=== PATIENT | male | born 1950 | race Caucasian/White ===

== ENCOUNTER 2018-01-23 06:10 | Inpatient (IN) | payer MEDICARE, OTHER ==
[2018-01-16 12:11] VITALS: BMI 37.3
[2018-01-23] MEDS ORDERED: Bupivacaine Liposomal Inj 20 ml INFIL ONE (07:28)
[2018-01-23] MEDS ORDERED: Bacitracin 150,000 UNIT in Sodium Chloride 0.9% Irrig 3,000 ML IR SCH (07:30)
[2018-01-23] MEDS ORDERED: Midazolam 2 MG/2 ML VIAL ONE (07:33)
[2018-01-23] MEDS ORDERED: Propofol 10 mg/ml Inj (20 ML) ONE (07:34)
[2018-01-23] MEDS ORDERED: ceFAZolin IV 1 gm in Dextrose 2 GM/100 ML BAG IVPB ONE (07:37)
[2018-01-23] MEDS ORDERED: Thrombin Topical 20,000 Intl Units Spray Kit TOP ONE (07:37)
[2018-01-23] MEDS ORDERED: Bupivacaine 0.5% Inj(30mL) IJ ONE (07:38)
[2018-01-23] MEDS ORDERED: Sodium Chloride 0.9% 40 ML IV ONE (08:04)
[2018-01-23] MEDS ORDERED: Sodium Chloride 0.9% 20 ML IV ONE (08:23)
[2018-01-23] MEDS ORDERED: Rocuronium 10 mg/ml (5 ml) ONE ×3 (08:53→11:58)
[2018-01-23] MEDS ORDERED: Phenylephrine 10 mg/ml Inj ONE ×3 (09:00→12:08)
[2018-01-23] MEDS ORDERED: ePHEDrine 50 mg/ml Inj ONE (09:07)
[2018-01-23 10:08] LABS: SQUAMOUS EPITHIAL < 1 /hpf (0-5); URINE BACTERIA RARE (<OCC); URINE BILIRUBIN NEGATIVE (NEGATIVE); URINE BLOOD NEGATIVE (NEGATIVE); URINE CLARITY Clear (Clear); URINE COLOR Yellow (YELLOW); URINE GLUCOSE (UA) NORMAL (Normal); URINE LEUKOCYTE ESTERASE NEG Leu/uL (Negative); URINE PROTEIN NEGATIVE (NEGATIVE); URINE UROBILINOGEN NORMAL mg/dL (0.2-1.0)
[2018-01-23] MEDS ORDERED: Metoprolol 1 mg/ml Inj ONE (10:37)
[2018-01-23] MEDS ORDERED: Vasopressin 20 Units/ml Inj ONE (12:08)
[2018-01-23] MEDS ORDERED: Neostigmine Methylsulfate 3mg/3ml Syringe IV ONE ×2 (12:13→12:14)
[2018-01-23] MEDS ORDERED: Morphine 4 MG/ML VIAL ONE (12:17)
[2018-01-23] MEDS ORDERED: Esmolol 100 mg/10ml Inj IV ONE (12:29)
--- NOTE | 2018-01-23 12:38 | PCM.SURG1 ---
<Denny Jefferson A - Last Filed: 01/24/18 07:56> Surgeon's Initial Post Op Note - Surgeon's Notes Surgeon: Eve Koch MD Gyro Mechanic: Monroe Miranda PA-C, DO Type of Anesthesia: General Endo Anesthesia Administered By: Dr. Zelaya Pre-Operative Diagnosis: Left knee DJD Operative Findings: tourniquet: 120min @300mmHg Post-Operative Diagnosis: same Operation Performed: Left total knee replacement, open synovectomy Specimen/Specimens Removed: synovitis Estimated Blood Loss: EBL {In ML}: 150 Blood Products Given: N/A Drains Used: Hemovac Post-Op Condition: Fair Date of Surgery/Procedure: 01/23/18 Time of Surgery/Procedure: 13:00 <Batsheva Márquez S - Last Filed: 02/10/18 00:17> Surgeon's Initial Post Op Note - Surgeon's Notes Specimen/Specimens Removed: Specimen= synovitis/synovium sent to path. Implants=. #1 Medacta GMK primary TKA system, sphere. size 5 cemented tibial tray, size 4+ cemneted sphere femur, size 2 cemented patellar button, size 5 - 12mm sphere poly spacer. #2 Biomet bone cement x2
[2018-01-23] MEDS ORDERED: Metoprolol 1 mg/ml Inj IVP ONE (13:06)
--- NOTE | 2018-01-23 13:15 | CP.PCM.PN ---
Subjective - Date & Time of Evaluation Date of Evaluation: 01/23/18 Time of Evaluation: 04:00 - Subjective Subjective: PGY 3 medical progress note for Dr. Metcalf: 67 year old male with a past medical history of DM, HTN, GERD, and degenerative join disease presents today s/p left total knee replacement. Patient was seen in the PACU after the surgery and was doing well. Aviles in place. He was still drowsy from anesthesia. PmHX - DM, HTN, GERD, and degenerative join disease, BPH Meds - per med rec NKDA Surg - cholecystectomy Social - , 2 kids, employed parts sales counterperson, former smoke 1/2 pack per day from [age] years old. denies alcohol or drug use Objective - Vital Signs/Intake and Output Vital Signs (last 24 hours): Temp Pulse Resp BP Pulse Ox 97.6 F 112 H 20 104/68 96 01/23/18 06:37 01/23/18 06:37 01/23/18 06:37 01/23/18 06:37 01/23/18 06:37 Intake and Output: 01/23/18 01/23/18 06:59 18:59 Intake Total 3100 Balance 3100 - Medications Medications: Current Medications Acetaminophen (Tylenol 325mg Tab) 650 mg PO Q6 PRN PRN Reason: Fever 101 and above Docusate Sodium (Colace) 100 mg PO BID [facility] Enoxaparin Sodium (Lovenox) 40 mg SC DAILY [facility] Hydromorphone HCl (Dilaudid) 1 mg IVP Q4H PRN PRN Reason: Pain, severe (8-10) Hydromorphone HCl (Dilaudid) 0.5 mg IVP Q10M PRN PRN Reason: Pain, moderate (4-7) Cefazolin Sodium/Dextrose (Ancef Iv 2 Gm Duplex) 2 gm in 50 mls @ 100 mls/hr IVPB Q8H [facility]; Protocol Stop: 01/24/18 16:01 Sodium Chloride (Sodium Chloride 0.9%) 1,000 mls @ 100 mls/hr IV .Q10H [facility] Stop: 01/24/18 08:29 Metoprolol Tartrate (Lopressor) 2.5 mg IVP ONCE ONE Stop: 01/23/18 13:07 Ondansetron HCl (Zofran Inj) 4 mg IVP Q6H PRN PRN Reason: Nausea/Vomiting Ondansetron HCl (Zofran Inj) 4 mg IVP ONCE PRN PRN Reason: Nausea/Vomiting Stop: 01/23/18 15:06 Oxycodone HCl (Oxycodone Immediate Release Tab) 10 mg PO Q4H PRN PRN Reason: Pain, moderate (4-7) - Constitutional Appears: Non-toxic, No Acute Distress - Head Exam Head Exam: NORMAL INSPECTION - Eye Exam Eye Exam: EOMI - Respiratory Exam Respiratory Exam: Clear to Ausculation Bilateral, NORMAL BREATHING PATTERN. absent: Respiratory Distress - Cardiovascular Exam Cardiovascular Exam: Tachycardia, REGULAR RHYTHM, +S1, +S2 - GI/Abdominal Exam GI & Abdominal Exam: Soft, Normal Bowel Sounds. absent: Distended, Firm, Guarding, Tenderness Additional comments: obese - Neurological Exam Neurological Exam: Awake Additional comments: still drowsy from anesthesia - Psychiatric Exam Psychiatric exam: Normal Affect, Normal Mood Assessment and Plan - Assessment and Plan (Free Text) Assessment: S/P Left total knee replacement 01/[address] Ned Dc Ancef 2 gm IVPB Q8h x 3 doses Lovenox 40mg Dilaudid 1mg IVP PRN- severe pain Dilaudid 0.5 mg IVP PRN- moderate pain Oxycodone 10mg PO Q4h PRN Tylenol 325mg 650mg PO PRN Q6 fever Zofran inj 4mg IVP Q6H PRN Aviles in place - to be removed tomorrow am PT/OT, continuous passive movement as tolerated Incentive spirometry f/u am labs, vitD, urine cx Diabetes Levemir 35 unit SC HS Januvia 100mg PO daily Crestor 10mg PO HS On iwona therapy hypoglycemic protocol ISS Will hold home metformin while in the hospital, to restart in 48-72 hours at discharge Hypertension Amlodipine 5mg PO daily Enalapril 10mg PO daily Hydrochlorothiazide 1 cap PO daily Hyperlipidemia Crestor 10mg PO HS BPH Folmax 0.4mg PO daily Finesteride 5mg PO HS Prophylactic measures SCDs No chemical anticoagultion until tomorrow due to surgery today - Lovenox 40mg SC dialy to begin 01/24 Consistent Carb diet Colace 100mg PO BID Multivitamins daily Case management for [facility] TC upon discharge *All management and orders per Dr. Metcalf.
[2018-01-23] MEDS: HYDROmorphone 0.5 mg/0.5 ml ISec IVP PRN ×3 (13:28→14:08)
--- NOTE | 2018-01-23 14:02 | RAD ---
Date of service: 01/23/2018 PROCEDURE: Left Knee Radiographs. HISTORY: Pain. COMPARISON: None. FINDINGS: BONES: Bone alignment is normal. There is periarticular bone demineralization. No acute fracture or bone destruction. JOINTS: Status post total cemented knee arthroplasty. There is a suprapatellar joint effusion. JOINT EFFUSION: There is periarticular soft tissue swelling and postoperative changes. There are anterior skin dayanna. OTHER FINDINGS: None. IMPRESSION: Status post total cemented knee arthroplasty with expected postoperative changes in the periarticular soft tissues. No acute complications.
[2018-01-23] MEDS ORDERED: Bupivacaine 0.25% 20 ML INJ IJ ONE (14:30)
[2018-01-23] MEDS ORDERED: Glucagon Recombinant 1 mg Inj IM PRN (14:44)
[2018-01-23] MEDS ORDERED: Dextrose 50% SYRINGE Inj (50 ml) IV PRN (14:44)
--- NOTE | 2018-01-23 14:54 | PCM.ANESB7 ---
Adductor Canal Block - Adductor Canal Block Date of Procedure: 01/23/18 Anesthiologist: Garcia Pre-Procedure Diagnosis: Left Knee Osteoarthritis Post-Procedure Diagnosis: Left Knee Osteoarthritis Procedure Performed: Adductor Canal Block Left - Procedure Adductor Canal Block: The procedure was explained to the patient that it is for the post-operative pain management. Consent was obtained after a thorough discussion with the patient regarding the benefits and possible complications of local anesthetic adductor canal block of the femoral nerve. Standard monitors, as defined by the ASA, were applied to the patient. Time-out was held with the circulating nurse to confirm the appropriate block. After applying supplemental oxygen and administering IV Sedation as needed, the patient was placed in supine position with and the operative leg was flexed slightly at the knee and externally rotated as needed, and was kept anatomically stable. The mid-thigh of the left lower extremity was exposed. The ultrasound transducer was then applied transversely along the medial aspect, about midway down the thigh and the femoral artery and vein were identified in appropriate relation with the sartorius muscle. At this time, the femoral nerve was visualized lateral to the femoral artery within the canal. After thorough identification, this area area was prepped with Chloroprep solution three times At this point, a #22 gauge Stimuplex 4-inch needle was inserted in-plane in a [id number] orientation, and advanced toward the saphenous nerve. Advancement was performed carefully under direct ultrasound visualization. . After negative aspiration, 20_cc of __0.25_% ____bupivicaine__was injected. Under ultrasound guidance the local anesthetics were observed spreading around the femoral nerve. The needle was removed intact and sterile dressing was applied. The patient had stable vital signs, was conscious and in no apparent distress. The patient tolerated the femoral nerve block well with stable vital signs and was prepared for subsequent surgery
[2018-01-23] MEDS: ceFAZolin IV 2 gm in Dextrose 2 GM/50 ML BAG IVPB SCH (17:00)
[2018-01-23] MEDS: Sodium Chloride 0.9% 1,000 ML IV SCH ×2 (17:30→23:04)
[2018-01-23] MEDS: (Novolog Mix 70/30) Insulin Aspart/Insulin Aspar 100 units/ml SC SCH (18:40)
[2018-01-23] MEDS: (Novolin R) Insulin Human Regular 100 units/ml vial SC SCH (23:00)
[2018-01-23] MEDS: Insulin Detemir 100 units/ml Vial (Levemir) SC SCH (23:00)
[2018-01-24] MEDS: ceFAZolin IV 2 gm in Dextrose 2 GM/50 ML BAG IVPB SCH (00:39)
[2018-01-24] MEDS: HYDROmorphone 1 mg/ml ISec IVP PRN ×5 (01:31→18:19)
[2018-01-24] MEDS: Sodium Chloride 0.9% 1,000 ML IV SCH (02:01)
[2018-01-24] MEDS: oxyCODONE 10 mg Immediate Release Tab PO PRN ×2 (04:15→17:10)
--- NOTE | 2018-01-24 06:54 | CP.PCM.PN ---
Subjective - Date & Time of Evaluation Date of Evaluation: 01/24/18 Time of Evaluation: 06:54 - Subjective Subjective: PGY2- Progress note for Dr. Metcalf Patient was seen and examined at bedside in no acute distress. Patient was oob to chair. Patient reports feeling well, has mild post op pain. Patient denies chest pain, palpitations, dyspnea, cough, nausea, vomiting, fevers, abdominal pain, headaches, dysuria. Patient states hes tolerating his diet, but has not had a BM since the operation. Objective - Vital Signs/Intake and Output Vital Signs (last 24 hours): Temp Pulse Resp BP Pulse Ox 98.1 F 100 H 20 144/78 96 01/24/18 04:36 01/24/18 05:45 01/24/18 05:45 01/24/18 05:45 01/24/18 05:45 Intake and Output: 01/23/18 01/24/18 18:59 06:59 Intake Total 4000 2160 Output Total 1250 3540 Balance 2750 -1380 - Medications Medications: Current Medications Acetaminophen (Tylenol 325mg Tab) 650 mg PO Q6 PRN PRN Reason: Fever 101 and above Amlodipine Besylate (Norvasc) 5 mg PO DAILY [facility] Dextrose (Dextrose 50% Inj) 0 ml IV STAT PRN; Protocol PRN Reason: Hypoglycemia Protocol Dextrose (Glutose 15) 0 gm PO ONCE PRN; Protocol PRN Reason: Hypoglycemia Protocol Docusate Sodium (Colace) 100 mg PO BID [facility] Last Admin: 01/23/18 18:38 Dose: 100 mg Enalapril Maleate (Vasotec) 10 mg PO DAILY [facility] Enoxaparin Sodium (Lovenox) 40 mg SC DAILY [facility] Finasteride (Proscar) 5 mg PO HS [facility] Last Admin: 01/23/18 23:00 Dose: 5 mg Glucagon (Glucagen Diagnostic Kit) 0 mg IM STAT PRN; Protocol PRN Reason: Hypoglycemia Protocol Hydromorphone HCl (Dilaudid) 1 mg IVP Q4H PRN PRN Reason: Pain, severe (8-10) Last Admin: 01/24/18 05:47 Dose: 1 mg Hydromorphone HCl (Dilaudid) 0.5 mg IVP Q10M PRN PRN Reason: Pain, moderate (4-7) Last Admin: 01/23/18 14:08 Dose: 0.5 mg Sodium Chloride (Sodium Chloride 0.9%) 1,000 mls @ 100 mls/hr IV .Q10H [facility] Stop: 01/24/18 08:29 Last Admin: 01/24/18 02:01 Dose: 100 mls/hr Dextrose (Dextrose 5% In Water 1000 Ml) 1,000 mls @ 0 mls/hr IV .Q0M PRN; Protocol PRN Reason: Hypoglycemia Protocol Insulin Aspart (Novolog Mix 70/30 (70/30 Units/Ml)) 35 units SC QPM [facility] Last Admin: 01/23/18 18:40 Dose: 35 units Insulin Aspart (Novolog Mix 70/30 (70/30 Units/Ml)) 10 units SC QAM [facility] Insulin Detemir (Levemir) 35 unit SC HS [facility] Last Admin: 01/23/18 23:00 Dose: 35 units Insulin Human Regular (Novolin R) 0 unit SC ACHS [facility]; Protocol Last Admin: 01/23/18 23:00 Dose: Not Given Multivitamins (Hexavitamin) 1 tab PO DAILY [facility] Ondansetron HCl (Zofran Inj) 4 mg IVP Q6H PRN PRN Reason: Nausea/Vomiting Oxycodone HCl (Oxycodone Immediate Release Tab) 10 mg PO Q4H PRN PRN Reason: Pain, moderate (4-7) Last Admin: 01/24/18 04:15 Dose: 10 mg Rosuvastatin Calcium (Crestor) 10 mg PO [facility] Last Admin: 01/23/18 23:00 Dose: 10 mg Sitagliptin Phosphate (Januvia) 100 mg PO DAILY [facility] Tamsulosin HCl (Flomax) 0.4 mg PO DAILY [facility] Triamterene/HCTZ (Dyazide 25 Mg-37.5 Mg) 1 cap PO DAILY [facility] - Constitutional Appears: No Acute Distress - Head Exam Head Exam: NORMAL INSPECTION - Eye Exam Eye Exam: EOMI, Normal appearance - ENT Exam ENT Exam: Mucous Membranes Moist - Respiratory Exam Respiratory Exam: Clear to Ausculation Bilateral, NORMAL BREATHING PATTERN. absent: Rales, Rhonchi, Wheezes - Cardiovascular Exam Cardiovascular Exam: REGULAR RHYTHM, +S1, +S2 - GI/Abdominal Exam GI & Abdominal Exam: Soft, Normal Bowel Sounds. absent: Distended, Firm, Gu arding, Tenderness - Extremities Exam Extremities Exam: Tenderness (post op). absent: Pedal Edema Additional comments: LLE: dressing in place, clean, dry, and intact; sensation and motor intact; - Neurological Exam Neurological Exam: Alert, Awake, Oriented x3 - Psychiatric Exam Psychiatric exam: Normal Affect, Normal Mood - Skin Skin Exam: Dry, Normal Color, Warm Assessment and Plan - Assessment and Plan (Free Text) Plan: S/P Left total knee replacement 01/[address] Ned Dc Ancef 2 gm IVPB Q8h x 3 doses Lovenox 40mg Dilaudid 1mg IVP PRN- severe pain Dilaudid 0.5 mg IVP PRN- moderate pain Oxycodone 10mg PO Q4h PRN Tylenol 325mg 650mg PO PRN Q6 fever Zofran inj 4mg IVP Q6H PRN VitD: 31.8 Continue to monitor Diabetes Levemir 35 unit SC HS Januvia 100mg PO daily Crestor 10mg PO HS On iwona therapy Hypoglycemic protocol ISS Will hold home metformin while in the hospital, to restart in 48-72 hours at discharge Hypertension Amlodipine 5mg PO daily Enalapril 10mg PO daily Hydrochlorothiazide 1 cap PO daily Hyperlipidemia Crestor 10mg PO HS BPH Flomax 0.4mg PO daily Finesteride 5mg PO HS Prophylactic measures Lovenox 40mg SC daily Consistent Carb diet Colace 100mg PO BID Multivitamins daily PT/OT Incentive spirometry Case management referral for discharge planning to TCU.
[2018-01-24] MEDS: (Novolin R) Insulin Human Regular 100 units/ml vial SC SCH ×4 (08:36→21:59)
[2018-01-24 08:47] LABS: HEMOGLOBIN 10.6 g/dL (12.0-18.0); MEAN CELL VOLUME 83.9 fL (80.0-94.0); MEAN CORPUSCULAR HEMOGLOBIN 29.2 pg (27.0-31.0); MEAN CORPUSCULAR HGB CONC 34.8 g/dL (33.0-37.0); RBC 3.63 Mil/uL (4.40-5.90); RED CELL DISTRIBUTION WIDTH 14.6 % (11.5-14.5); WHITE BLOOD COUNT 9.5 K/uL (4.8-10.8)
[2018-01-24 09:05] LABS: BLOOD UREA NITROGEN 14 mg/dL (9-20); CALCIUM 8.1 mg/dl (8.6-10.4); GFR NON-AFRICAN AMERICAN > 60
--- NOTE | 2018-01-24 09:18 | CP.PCM.PN ---
Subjective - Date & Time of Evaluation Date of Evaluation: 01/24/18 Time of Evaluation: 09:14 - Subjective Subjective: Patient states that he has a lot of pain, but the injection helps. Denies CP/SOB/dizziness/numbness/tingling. Objective - Vital Signs/Intake and Output Vital Signs (last 24 hours): Temp Pulse Resp BP Pulse Ox 98.1 F 100 H 20 144/78 96 01/24/18 04:36 01/24/18 05:45 01/24/18 05:45 01/24/18 05:45 01/24/18 05:45 Intake and Output: 01/24/18 01/24/18 06:59 18:59 Intake Total 2160 Output Total 3540 Balance -1380 - Medications Medications: Current Medications Acetaminophen (Tylenol 325mg Tab) 650 mg PO Q6 PRN PRN Reason: Fever 101 and above Amlodipine Besylate (Norvasc) 5 mg PO DAILY [facility] Dextrose (Dextrose 50% Inj) 0 ml IV STAT PRN; Protocol PRN Reason: Hypoglycemia Protocol Dextrose (Glutose 15) 0 gm PO ONCE PRN; Protocol PRN Reason: Hypoglycemia Protocol Docusate Sodium (Colace) 100 mg PO BID [facility] Last Admin: 01/23/18 18:38 Dose: 100 mg Enalapril Maleate (Vasotec) 10 mg PO DAILY [facility] Enoxaparin Sodium (Lovenox) 40 mg SC DAILY [facility] Finasteride (Proscar) 5 mg PO HS [facility] Last Admin: 01/23/18 23:00 Dose: 5 mg Glucagon (Glucagen Diagnostic Kit) 0 mg IM STAT PRN; Protocol PRN Reason: Hypoglycemia Protocol Hydromorphone HCl (Dilaudid) 1 mg IVP Q4H PRN PRN Reason: Pain, severe (8-10) Last Admin: 01/24/18 05:47 Dose: 1 mg Hydromorphone HCl (Dilaudid) 0.5 mg IVP Q10M PRN PRN Reason: Pain, moderate (4-7) Last Admin: 01/23/18 14:08 Dose: 0.5 mg Dextrose (Dextrose 5% In Water 1000 Ml) 1,000 mls @ 0 mls/hr IV .Q0M PRN; Protocol PRN Reason: Hypoglycemia Protocol Insulin Aspart (Novolog Mix 70/30 (70/30 Units/Ml)) 35 units SC QPM [facility] Last Admin: 01/23/18 18:40 Dose: 35 units Insulin Aspart (Novolog Mix 70/30 (70/30 Units/Ml)) 10 units SC QAM [facility] Insulin Detemir (Levemir) 35 unit SC HS [facility] Last Admin: 01/23/18 23:00 Dose: 35 units Insulin Human Regular (Novolin R) 0 unit SC ACHS [facility]; Protocol Last Admin: 01/24/18 08:36 Dose: 3 u Multivitamins (Hexavitamin) 1 tab PO DAILY [facility] Ondansetron HCl (Zofran Inj) 4 mg IVP Q6H PRN PRN Reason: Nausea/Vomiting Oxycodone HCl (Oxycodone Immediate Release Tab) 10 mg PO Q4H PRN PRN Reason: Pain, moderate (4-7) Last Admin: 01/24/18 04:15 Dose: 10 mg Rosuvastatin Calcium (Crestor) 10 mg PO HS [facility] Last Admin: 01/23/18 23:00 Dose: 10 mg Sitagliptin Phosphate (Januvia) 100 mg PO DAILY [facility] Tamsulosin HCl (Flomax) 0.4 mg PO DAILY [facility] Triamterene/HCTZ (Dyazide 25 Mg-37.5 Mg) 1 cap PO DAILY [facility] - Labs Labs: 01/24/18 08:42 01/24/18 08:42 - Extremities Exam Additional comments: Left knee: hemovac 20 overnight, no fluid in canister, pulled, pressure dressing applied +ROM ankle/toes, sensation intact, +DP/PT pulses calves soft NT neg homans Assessment and Plan (1) Primary osteoarthritis of left knee Assessment & Plan: POD#1 s/p TKR PT/OT d/c planning VTE proph medical mgmt of HTN/DM d/w Dr. Koch, agrees with above Status: Acute (2) HTN (hypertension) Assessment & Plan: cont home meds Status: Chronic (3) Diabetes mellitus Status: Chronic
[2018-01-24] MEDS: hydroCHLOROthiazide-Triamterene 25 mg-37.5 mg Cap UD PO SCH (10:11)
[2018-01-24] MEDS: Multiple Vitamins Tab PO SCH (10:12)
[2018-01-24] MEDS: (Novolog Mix 70/30) Insulin Aspart/Insulin Aspar 100 units/ml SC SCH ×2 (10:16→18:21)
[2018-01-24] MEDS: Enoxaparin 40 mg Syringe SC SCH (10:25)
[2018-01-24 11:22] LABS: BASO # 0.1 K/uL (0.0-0.2); BASO % 0.6 % (0.0-2.0); EOS # 0.1 K/uL (0.0-0.7); EOS % 0.8 % (0.0-4.0); HEMOGLOBIN 10.3 g/dL (12.0-18.0); LYMPH # 1.2 K/uL (1.0-4.3); LYMPH % 12.4 % (20.0-40.0); MEAN CELL VOLUME 84.2 fL (80.0-94.0); MEAN CORPUSCULAR HEMOGLOBIN 28.5 pg (27.0-31.0); MEAN CORPUSCULAR HGB CONC 33.9 g/dL (33.0-37.0); MEAN PLATELET VOLUME 8.3 fL (7.2-11.7); MONO # 0.9 K/uL (0.0-0.8); MONO % 10.1 % (0.0-10.0); NEUT # 7.2 K/uL (1.8-7.0); NEUT % 76.1 % (50.0-75.0); RBC 3.61 Mil/uL (4.40-5.90); RED CELL DISTRIBUTION WIDTH 14.7 % (11.5-14.5); WHITE BLOOD COUNT 9.4 K/uL (4.8-10.8)
[2018-01-24 11:30] LABS: ALB/GLOB RATIO 1.3 (1.0-2.1); ALBUMIN 3.6 g/dL (3.5-5.0); ALT/SGPT 27 U/L (21-72); AST/SGOT 23 U/L (17-59); BLOOD UREA NITROGEN 13 mg/dL (9-20); CALCIUM 8.1 mg/dl (8.6-10.4); GFR NON-AFRICAN AMERICAN > 60
[2018-01-24] MEDS: Calcium-Vit D 500 mg-200 Units Tab UD PO SCH (13:13)
[2018-01-24] MEDS: Insulin Detemir 100 units/ml Vial (Levemir) SC SCH (22:31)
[2018-01-25] MEDS: HYDROmorphone 1 mg/ml ISec IVP PRN ×2 (05:45→13:33)
--- NOTE | 2018-01-25 07:09 | CP.PCM.PN ---
Addendum entered and electronically signed by Smitha Salinas 01/25/18 13:51: Patient authorized for placement at TCU. Patient will be discharged and transferred to TCU in [place]. Patient is stable for discharge to TCU at [place] per Dr. Metcalf and Dr. Garay. Patient must continue all home medications. Patient must continue Lovenox 40mg SC daily. Per ortho, patient must continue weight bearing exercises. Dressing change will be performed on Sunday by ortho team. Patient must follow up with orthopedic surgeon, Dr. Garay, and PMD, Dr. Metcalf, within one week of discharge. If symptoms worsen, patient should return to the nearest ED. Original Note: Subjective - Date & Time of Evaluation Date of Evaluation: 01/25/18 Time of Evaluation: 07:09 - Subjective Subjective: PGY2- Progress note for Dr. Metcalf Patient was seen and examined at bedside in no acute distress. Patient reports feeling well, has mild post op pain. Patient denies chest pain, palpitations, dyspnea, cough, nausea, vomiting, fevers, abdominal pain, headaches, dysuria. Patient states hes tolerating his diet, but has not had a BM since the operation; he is, however, passing flatus. Objective - Vital Signs/Intake and Output Vital Signs (last 24 hours): Temp Pulse Resp BP Pulse Ox 98.9 F 105 H 20 146/77 94 L 01/25/18 05:42 01/25/18 05:42 01/25/18 05:42 01/25/18 05:42 01/25/18 05:42 Intake and Output: 01/25/18 01/25/18 06:59 18:59 Output Total 900 Balance -900 - Medications Medications: Current Medications Acetaminophen (Tylenol 325mg Tab) 650 mg PO Q6 PRN PRN Reason: Fever 101 and above Amlodipine Besylate (Norvasc) 5 mg PO DAILY [facility] Last Admin: 01/24/18 10:12 Dose: 5 mg Calcium/Vitamin D (Oyster Shell Calcium/Vitamin D 500 Mg-200 Iu) 1 tab PO DAILY [facility] Last Admin: 01/24/18 13:13 Dose: 1 tab Dextrose (Dextrose 50% Inj) 0 ml IV STAT PRN; Protocol PRN Reason: Hypoglycemia Protocol Dextrose (Glutose 15) 0 gm PO ONCE PRN; Protocol PRN Reason: Hypoglycemia Protocol Docusate Sodium (Colace) 100 mg PO BID [facility] Last Admin: 01/24/18 18:19 Dose: 100 mg Enalapril Maleate (Vasotec) 10 mg PO DAILY [facility] Last Admin: 01/24/18 10:12 Dose: 10 mg Enoxaparin Sodium (Lovenox) 40 mg SC DAILY [facility] Last Admin: 01/24/18 10:25 Dose: 40 mg Finasteride (Proscar) 5 mg PO HS [facility] Last Admin: 01/24/18 22:29 Dose: 5 mg Glucagon (Glucagen Diagnostic Kit) 0 mg IM STAT PRN; Protocol PRN Reason: Hypoglycemia Protocol Hydromorphone HCl (Dilaudid) 1 mg IVP Q4H PRN PRN Reason: Pain, severe (8-10) Last Admin: 01/25/18 05:45 Dose: 1 mg Hydromorphone HCl (Dilaudid) 0.5 mg IVP Q10M PRN PRN Reason: Pain, moderate (4-7) Last Admin: 01/23/18 14:08 Dose: 0.5 mg Dextrose (Dextrose 5% In Water 1000 Ml) 1,000 mls @ 0 mls/hr IV .Q0M PRN; Prot ocol PRN Reason: Hypoglycemia Protocol Insulin Aspart (Novolog Mix 70/30 (70/30 Units/Ml)) 35 units SC QPM [facility] Last Admin: 01/24/18 18:21 Dose: 35 units Insulin Aspart (Novolog Mix 70/30 (70/30 Units/Ml)) 10 units SC QAM [facility] Last Admin: 01/24/18 10:16 Dose: 10 u Insulin Detemir (Levemir) 35 unit SC HS [facility] Last Admin: 01/24/18 22:31 Dose: 35 units Insulin Human Regular (Novolin R) 0 unit SC ACHS [facility]; Protocol Last Admin: 01/24/18 21:59 Dose: Not Given Multivitamins (Hexavitamin) 1 tab PO DAILY [facility] Last Admin: 01/24/18 10:12 Dose: 1 tab Ondansetron HCl (Zofran Inj) 4 mg IVP Q6H PRN PRN Reason: Nausea/Vomiting Oxycodone HCl (Oxycodone Immediate Release Tab) 10 mg PO Q4H PRN PRN Reason: Pain, moderate (4-7) Last Admin: 01/24/18 17:10 Dose: 10 mg Rosuvastatin Calcium (Crestor) 10 mg PO HS [facility] Last Admin: 01/24/18 22:29 Dose: 10 mg Sitagliptin Phosphate (Januvia) 100 mg PO DAILY [facility] Last Admin: 01/24/18 10:16 Dose: 100 mg Tamsulosin HCl (Flomax) 0.4 mg PO DAILY [facility] Last Admin: 01/24/18 10:12 Dose: 0.4 mg Triamterene/HCTZ (Dyazide 25 Mg-37.5 Mg) 1 cap PO DAILY [facility] Last Admin: 01/24/18 10:11 Dose: 1 cap - Labs Labs: 01/24/18 11:10 01/24/18 11:10 - Additional Findings Additional findings: - Constitutional Appears: No Acute Distress - Head Exam Head Exam: NORMAL INSPECTION - Eye Exam Eye Exam: EOMI, Normal appearance - ENT Exam ENT Exam: Mucous Membranes Moist - Respiratory Exam Respiratory Exam: Clear to Ausculation Bilateral, NORMAL BREATHING PATTERN. absent: Rales, Rhonchi, Wheezes - Cardiovascular Exam Cardiovascular Exam: REGULAR RHYTHM, +S1, +S2 - GI/Abdominal Exam GI & Abdominal Exam: Soft, Normal Bowel Sounds. absent: Distended, Firm, Guarding, Tenderness - Extremities Exam Extremities Exam: Tenderness (post op). absent: Pedal Edema Additional comments: LLE: dressing in place, clean, dry, and intact; sensation and motor intact; - Neurological Exam Neurological Exam: Alert, Awake, Oriented x3 - Psychiatric Exam Psychiatric exam: Normal Affect, Normal Mood - Skin Skin Exam: Dry, Normal Color, Warm Assessment and Plan - Assessment and Plan (Free Text) Plan: S/P Left total knee replacement 01/[address] Ned Dc Ancef 2 gm IVPB Q8h x 3 doses Lovenox 40mg Dilaudid 1mg IVP PRN- severe pain Dilaudid 0.5 mg IVP PRN- moderate pain Oxycodone 10mg PO Q4h PRN Tylenol 325mg 650mg PO PRN Q6 fever Zofran inj 4mg IVP Q6H PRN VitD: 31.8 Continue to monitor Diabetes Levemir 35 unit SC HS Januvia 100mg PO daily Crestor 10mg PO HS On iwona therapy Hypoglycemic protocol ISS Will hold home metformin while in the hospital, to restart in 48-72 hours at discharge Hypertension Amlodipine 5mg PO daily Enalapril 10mg PO daily Hydrochlorothiazide 1 cap PO daily Hyperlipidemia Crestor 10mg PO HS BPH Flomax 0.4mg PO daily Finesteride 5mg PO HS Prophylactic measures Lovenox 40mg SC daily Consistent Carb diet Colace 100mg PO BID Multivitamins daily PT/OT Incentive spirometry Case management referral for discharge planning to TCU. Dispo: Pending authorization from insurance for TCU. Will transfer to TCU once authorized. All management and orders per Dr. Metcalf.
[2018-01-25 08:23] LABS: HEMOGLOBIN 9.7 g/dL (12.0-18.0); MEAN CELL VOLUME 83.5 fL (80.0-94.0); MEAN CORPUSCULAR HEMOGLOBIN 28.3 pg (27.0-31.0); MEAN CORPUSCULAR HGB CONC 33.8 g/dL (33.0-37.0); RBC 3.43 Mil/uL (4.40-5.90); RED CELL DISTRIBUTION WIDTH 14.3 % (11.5-14.5); WHITE BLOOD COUNT 11.4 K/uL (4.8-10.8)
[2018-01-25] MEDS: (Novolin R) Insulin Human Regular 100 units/ml vial SC SCH ×3 (08:36→17:24)
[2018-01-25 08:49] LABS: ALB/GLOB RATIO 1.2 (1.0-2.1); ALBUMIN 3.6 g/dL (3.5-5.0); ALT/SGPT 22 U/L (21-72); AST/SGOT 24 U/L (17-59); BLOOD UREA NITROGEN 10 mg/dL (9-20); CALCIUM 8.6 mg/dl (8.6-10.4); GFR NON-AFRICAN AMERICAN > 60
[2018-01-25] MEDS: (Novolog Mix 70/30) Insulin Aspart/Insulin Aspar 100 units/ml SC SCH ×2 (10:00→17:35)
[2018-01-25] MEDS: Enoxaparin 40 mg Syringe SC SCH (10:05)
[2018-01-25] MEDS: Calcium-Vit D 500 mg-200 Units Tab UD PO SCH (10:11)
[2018-01-25] MEDS: Multiple Vitamins Tab PO SCH (10:12)
[2018-01-25] MEDS: hydroCHLOROthiazide-Triamterene 25 mg-37.5 mg Cap UD PO SCH (10:12)
[2018-01-25] MEDS ORDERED: Potassium Chloride 20 mEq ER Tab PO ONE (12:11)
--- NOTE | 2018-01-25 15:37 | CP.PCM.PN ---
<Denny Jefferson - Last Filed: 01/25/18 15:41> Subjective - Date & Time of Evaluation Date of Evaluation: 01/25/18 Time of Evaluation: 15:42 - Subjective Subjective: Patient states pain is controlled. Tolerating PT well. Denies CP/SOB/dizziness Objective - Vital Signs/Intake and Output Vital Signs (last 24 hours): Temp Pulse Resp BP Pulse Ox 97.3 F L 108 H 18 133/74 97 01/25/18 10:10 01/25/18 07:43 01/25/18 07:43 01/25/18 10:11 01/25/18 07:43 Intake and Output: 01/25/18 01/25/18 06:59 18:59 Output Total 900 Balance -900 - Medications Medications: Current Medications Acetaminophen (Tylenol 325mg Tab) 650 mg PO Q6 PRN PRN Reason: Fever 101 and above Amlodipine Besylate (Norvasc) 5 mg PO DAILY [facility] Last Admin: 01/25/18 10:05 Dose: 5 mg Calcium/Vitamin D (Oyster Shell Calcium/Vitamin D 500 Mg-200 Iu) 1 tab PO DAILY [facility] Last Admin: 01/25/18 10:11 Dose: 1 tab Dextrose (Dextrose 50% Inj) 0 ml IV STAT PRN; Protocol PRN Reason: Hypoglycemia Protocol Dextrose (Glutose 15) 0 gm PO ONCE PRN; Protocol PRN Reason: Hypoglycemia Protocol Docusate Sodium (Colace) 100 mg PO BID [facility] Last Admin: 01/25/18 10:04 Dose: 100 mg Enalapril Maleate (Vasotec) 10 mg PO DAILY [facility] Last Admin: 01/25/18 10:11 Dose: 10 mg Enoxaparin Sodium (Lovenox) 40 mg SC DAILY [facility] Last Admin: 01/25/18 10:05 Dose: 40 mg Finasteride (Proscar) 5 mg PO HS [facility] Last Admin: 01/24/18 22:29 Dose: 5 mg Glucagon (Glucagen Diagnostic Kit) 0 mg IM STAT PRN; Protocol PRN Reason: Hypoglycemia Protocol Hydromorphone HCl (Dilaudid) 1 mg IVP Q4H PRN PRN Reason: Pain, severe (8-10) Last Admin: 01/25/18 13:33 Dose: 1 mg Hydromorphone HCl (Dilaudid) 0.5 mg IVP Q10M PRN PRN Reason: Pain, moderate (4-7) Last Admin: 01/23/18 14:08 Dose: 0.5 mg Dextrose (Dextrose 5% In Water 1000 Ml) 1,000 mls @ 0 mls/hr IV .Q0M PRN; Protocol PRN Reason: Hypoglycemia Protocol Insulin Aspart (Novolog Mix 70/30 (70/30 Units/Ml)) 35 units SC QPM [facility] Last Admin: 01/24/18 18:21 Dose: 35 units Insulin Aspart (Novolog Mix 70/30 (70/30 Units/Ml)) 10 units SC QAM [facility] Last Admin: 01/25/18 10:00 Dose: 10 u Insulin Detemir (Levemir) 35 unit SC HS [facility] Last Admin: 01/24/18 22:31 Dose: 35 units Insulin Human Regular (Novolin R) 0 unit SC ACHS [facility]; Protocol Last Admin: 01/25/18 12:08 Dose: 4 u Multivitamins (Hexavitamin) 1 tab PO DAILY [facility] Last Admin: 01/25/18 10:12 Dose: 1 tab Ondansetron HCl (Zofran Inj) 4 mg IVP Q6H PRN PRN Reason: Nausea/Vomiting Oxycodone HCl (Oxycodone Immediate Release Tab) 10 mg PO Q4H PRN PRN Reason: Pain, moderate (4-7) Last Admin: 01/24/18 17:10 Dose: 10 mg Rosuvastatin Calcium (Crestor) 10 mg PO [facility] Last Admin: 01/24/18 22:29 Dose: 10 mg Sitagliptin Phosphate (Januvia) 100 mg PO DAILY [facility] Last Admin: 01/25/18 10:05 Dose: 100 mg Tamsulosin HCl (Flomax) 0.4 mg PO DAILY [facility] Last Admin: 01/25/18 10:05 Dose: 0.4 mg Triamterene/HCTZ (Dyazide 25 Mg-37.5 Mg) 1 cap PO DAILY [facility] Last Admin: 01/25/18 10:12 Dose: 1 cap - Labs Labs: 01/25/18 08:17 01/25/18 08:17 - Extremities Exam Additional comments: Left knee: +ROM ankle/toes, sensation intact, calves soft NT neg homans, dresssing left intact as per Dr. Koch+DP/PT pulses Assessment and Plan (1) Primary osteoarthritis of left knee Assessment & Plan: POD#2 s/p TKR d/c to [facility] TCU today will change dressing on sunday cont lovenox and home meds PT/OT WBAT d/w Dr. Koch, agrees with above Status: Acute (2) HTN (hypertension) Status: Chronic (3) Diabetes mellitus Status: Chronic <Batsheva Márquez - Last Filed: 02/09/18 17:00> Objective - Vital Signs/Intake and Output Vital Signs (last 24 hours): Temp Pulse Resp BP Pulse Ox 99.2 F 117 H 20 123/68 93 L 18 15:30 01/25/18 15:30 01/25/18 15:30 01/25/18 15:30 01/25/18 15:30 - Labs Labs: 01/25/18 08:17 01/25/18 08:17 Assessment and Plan - Assessment and Plan (Free Text) Assessment: Pt seen and examined. POD #2 L TKA Doing well. continue pain control PT= WBAT, ambulation, ROM, strengthening, stretching, CPM, work to regain full ROM OOB as much as possible medical care per primary medical team will follow ok for dc to TCU from ortho point of view Batsheva Koch MD Orthopedic Surgery
[2018-01-25 16:06] VITALS: BP 123/68; PULSE 117; RESP 20; TEMP 99.2; O2SAT 93
--- NOTE | 2018-02-11 06:41 | OP ---
PROCEDURE DATE: 01/23/2018 PREOPERATIVE DIAGNOSES: Left knee; 1. Degenerative joint disease. 2. Varus deformity. 3. Synovitis. 4. 5 degree flexion contracture. POSTOPERATIVE DIAGNOSES: Left knee; 1. Degenerative joint disease. 2. Varus deformity. 3. Synovitis. 4. 5 degree flexion contracture. PROCEDURES: Left knee; 1. Total knee arthroplasty. 2. Open synovectomy. 3. Administration of Genicular nerve / peripheral nerve block. SURGEON: Batsheva Magana MD. LOADING SHOVEL OILER: Denny Jefferson PA-C. SECOND THERAPIST: Lenny Enriquez DO curator medical museum. JUSTIFICATION OF ASSISTANTS: Denny Jefferson is a certified physician desk assistant whose skilled surgical assistance was an absolute necessity for successful completion of the procedure as she provided skilled surgical assistance with positioning of the patient, positioning of extremity, management of surgical field, retraction of neurovascular structures, surgical exposure, open synovectomy, preparation of distal femoral cuts, preparation of proximal tibia cuts, preparation of patellar cuts, good cement technique, placements of trial implants, placements of final implants, wounds closure, fitting and placement of knee immobilizer. Denny Jefferson was present for the entire case and was an absolute necessity for successful completion of the procedure. ANESTHESIA: General endotracheal anesthesia with a postop regional nerve block placed by anesthesia staff in PACU. DRAINS: Hemovac drains x1. SPECIMEN: Inflamed synovium/synovitis from open synovectomy sent to pathology. TOURNIQUET TIME: 120 minutes at 300 mmHg. ESTIMATED BLOOD LOSS: 150 mL. COMPLICATIONS: None. DISPOSITION: The patient was extubated and transferred to PACU in stable condition. IMPLANTS: Medacta GMK primary total knee arthroplasty system, sphere system consisting of; 1. Size 5 cemented tibial tray fixed. 2. Size 4+ cemented distal femur (sphere). 3. Size 2 cemented patellar polyethelene button. 4. Size 5, 12 mm high sphere polyethelene spacer. Biomet bone cement, 2 packages open. INDICATION FOR SURGERY: The patient is a 68-year-old male with a past medical history significant for hypertension, diabetes, obesity who presented to the office under my care for the first time on 05/08/2017 with severe left knee pain that has progressively worsened over the past year. He denied any traumatic events and stated that the pain progressively worsened of insidious onset. Pain was worse with climbing stairs and any increased walking. The pain became a significant negative impact on his quality of life and ADLs. On his initial presentation on 05/08/2017 under my care in the office, weightbearing x-rays were done that showed significant DJD and complete loss of the medial joint line/compartment as well as the patellofemoral joint. Physical exam showed loss of range of motion with significant medial joint line pain. Range of motion was decreased with a 5 degree flexion contracture and inability to flex past 90 degrees. He had overall varus alignment seen clinically as well as on weightbearing x-rays. We started with conservative treatment consisting of cortisone mixture injection on 05/08/2017, 06/05/2017, 07/03/2017, hyaluronic acid injection series in the form of Euflexxa series in 06/2017, four injections in total over a span of four weeks, multiple rounds of physical therapy, antiinflammatory medication in the form of Mobic, antiinflammatory compound cream and Neoprene hinged knee bracing. Each one of the cortisone mixture injections done under my care in the office provided him with near complete resolution of pain that lasted approximately 2-3 weeks and by the time he would follow up at the fourth week, he returned to his baseline level of pain, which was consistently rated 8/10. He also had modest improvement with the hyaluronic acid injection series lasting approximately three months. After failing conservative treatments under my care over the span of eight months with no overall improvement, the patient was very frustrated due to the degree of pain and disability he was experiencing and was seeking alternative intervention. He was indicated for left knee total knee arthroplasty and all related indicated procedures with the risks, benefits and alternatives discussed at length with the patient, risks included but were not limited to infection, neurovascular damage, need for further surgery, failure of implants, mechanical catastrophic failure, need for revision arthroplasty and polyethelene exchange, infection leading to the need for removal of implants and antibiotic spacer, possible loss of limb and resulting above knee amputation, development of blood clots including DVT and PE, development of chronic pain and disability, stiffness, chronic pain and disability, inability to return to presurgical level of activity, anesthesia reactions including and cardiopulmonary perioperative compromise. After answering all of his questions in Marshallese and in his douglas language of Khmer for which I am fluent, he accepted the risks and wished to proceed with surgery. He watched surgical animation videos and diagnosis animation videos on multiple occasions in the office and stated that he had a good understanding of the procedure as well as his diagnosis. I reviewed at length with him the postop rehabilitation protocol and he stated that he had a good understanding of the need for compliance with the rehab protocol in order to maximize chance of having successful outcome after surgery. He was referred to his primary care physician, Dr. Alice Metcalf for preadmission testing and preoperative medical clearance and the procedure was scheduled at [facility] on 01/23/2018. DESCRIPTION OF PROCEDURE: The patient was identified in the preoperative holding area, and the left knee was marked for surgery. Once again, as described above, the risks, benefits, and alternatives to the procedure were discussed at length with the patient and informed consent was obtained. After brief discussion with anesthesia staff, the patient was brought to the operating room and placed on a well-padded operating room table with all bony prominences and superficial neurovascular structures well padded. An initial time-out was done. Perioperative IV antibiotics were administered. General anesthesia was administered without difficulty or complication. Examination under anesthesia was then carried out. Examination under anesthesia: Left knee with 5 degree flexion contracture and limited flexion to 100 degrees. Significant crepitance throughout range of motion. No evidence of instability. Skin intact, no swelling, no warmth, no erythema. No opening to varus or valgus stress at medial or lateral joint lines at 0 to 30 degrees of varus or valgus stress. Negative anterior drawer, negative posterior drawer, negative Cindy, negative reverse Cindy, negative pivot shift, negative reverse pivot shift, negative dial test, negative posterolateral corner drawer test, patella with normal tracking, but there was significant crepitance. Continuation of procedure: Tourniquet was placed high on the left thigh. The left lower extremity was prepped and draped in standard sterile fashion. A final time-out was done with the surgeon, anesthesia staff, OR staff, all in agreement with the patient, procedure being done, and the extremity being operated on. The left lower extremity was exsanguinated and tourniquet was inflated to 300 mmHg for total tourniquet time of 120 minutes. A medial parapatellar approach to the knee was carried out starting three fingerbreadths above the level of the patella along the medial aspect of the quadriceps tendon to the patella along the medial aspect of the patellar tendon to the tibial tuberosity. An incision was made slightly medial to the midline through skin down to subcutaneous tissue while maintaining good hemostasis down to the level of the medial retinaculum. Arthrotomy was carried out starting at the medial aspect of the quadriceps tendon down and around the medial aspect of the patella to the medial aspect of the patellar tendon down to the tibial tuberosity. A medial release was carried out with periosteal elevation medially and resection of osteophytes and partial release of deep MCL. The knee was then brought into an extended position and the patella was everted and the patellar cut was carried out while maintaining greater than 15 mm bone stock to support he patellar button/ resurfacing and to minimize the chances of patellar fracture. This was done using the D[employer] cutting guide for the patella followed by free-hand finishing with the saw blade confirming a level, even cut patellar surface. An extensive synovectomy was then carried out exposing the distal femur landmarks for the custom cutting guides. Open Extensive Synovectomy: An extensive open synovectomy was carried out that was beyond what is considered usual and customary during total knee arthroplasty, usually done for better visualization and access to bone. In this case, there was a significant amount of unexpected hypertrophic, indurated, inflamed synovium throughout all 3 compartments of the knee that was far beyond what is usually encountered during routine total knee arthroplasty. An extended amount of surgical time was spent performing this open 3 compartment extensive synovectomy as there was significant inflamed synovial tissue throughout all 3 compartments of the knee joint, this was most likely a significant pain generator for the patient. Once the extensive synovectomy was completed, we then proceeded with the rest of the total knee arthroplasty steps. A specimen/ biopsy of the inflamed synovitis/synovitis was sent to pathology as well. Continuation of Total Knee Arthroplasty: The knee was brought into flexion. ACL was resected and the infrapatellar fat pad was resected. PCL was resected. Contact points for the custom cutting guides for the distal femur were debrided of overlying cartilage and the cutting block for the distal femoral cut was pinned into position. Distal femoral cut was carried out. Four-in-one guide was then applied and pinned securely into position with a 3-degree external rotation dialed into the jig. Anterior cut, posterior cut, anterior chamfer, and posterior chamfer cuts were carried out successfully. Trial implant was then placed, size 4+, left femur that fit perfectly. Trial distal femur was removed and attention then turned towards proximal tibial preparation. Contact points for the proximal tibial cutting guide were debrided of overlying cartilage and the cutting guide was pinned into position. Alignment guide confirmed the methodist in neutral alignment. Proximal tibial cut was created. Once the proximal tibial cut was carried out and the menisci were resected, the proximal tibial preparation continued with placement of the wedge osteotome followed by proximal reaming. Trial size 5 tibia and trial size 4+ femur were then placed with a size 12 mm polyethylene spacer with good soft tissue balancing maintained. At that point in time, we turned our attention back to the distal femoral preparation. The distal femoral sphere final cutting guide was pinned and secured into position and the reaming mill was used to create the deepened groove for the sphere distal femoral final implant. The knee and bony cut surfaces were copiously irrigated with 2000 mL of normal saline with antibiotics/ Bacitracin. The jose cut surfaces were padded dry and the Biomet cement was mixed. Good cement technique was carried out to implant the final implants. Size 4+ cemented GMK primary sphere distal femur knee implant was placed successfully. The proximal tibia size 5 tibial base plate and a 14 mm sphere trial spacer were placed successfully. Size 2 patellar button was cemented successfully. Once the cement dried, the tourniquet was deflated for a total tourniquet time of 120 minutes at 300 mmHg. Good hemostasis was achieved. Local anesthetic/ Exparel mixture was then injected in the posterior capsule and surrounding soft tissue. The trial spacer of 12 mm proved to have good soft tissue balancing and achieved full range of motion from full extension to 140 degrees of flexion without hyperextension. A final 12 mm sphere polyethylene spacer was opened and secured to the tibial base plate and the knee was tested again with good patellar tracking and soft tissue balancing and full range of motion appreciated with good mid-flexion stability and overall stability of the implant and knee with neutral alignment achieved. The knee joint was then copiously irrigated again with 1000 mL normal saline with antibiotics followed by 1 minute soak in antibiotic solution, Irrisept. The remaining local anesthetic/ Exaprel mixture was injected into the soft tissue and wound as well as a targeted peripheral nerve block to the anterior decending cutaneous nerves and the Genicular nerve. This was done as a targeted nerve block to help with post-op pain control separate from the Adductor canal block/ regional block done by anesthesia staff in PACU postoperatively. Hemovac drain was placed. Alternating #2 FiberWire suture and #1 Vicryl suture were used to repair the retinaculum and deep tissue, restoring normal patellar tracking. The #1 Vicryl suture was used for subcutaneous reapproximation with alternating 2.0 Vicryl suture as well. [place] were used for skin reapproximation. Sterile dressings and a layer of Dermabond were then applied to the wound. A layer of sterile cast padding was applied from the toes up to the superior thigh. A layer of compressive Jeff wrap was applied from the toes up to the superior thigh. The knee was then placed in the knee immobilizer and the patient was extubated and transferred to the PACU in stable condition having tolerated the procedure well. X-rays of the knee done in PACU were reviewed showing implants in ideal position with proper cement mantle, methodist of overall neutral alignment, and no evidence of iatrogenic injury/ fracture. Justification for Billing and Coding: #1 Total knee arthroplasty was carried out successfully and there was coded and billed as the primary code, CPT 75095. #2 Open extensive synovectomy was carried out successfully beyond what was considered usual and customary during total knee arthroplasty. There was an unexpected amount of inflamed, hypertrophic synovium throughout all 3 compartments of the knee joint acting as a significant pain generator for the patient's knee. There was a significant amount of surgical time dedicated to performing a complete open extensive synovectomy and therefore, open synovectomy was coded and billed, CPT 93257. #3 Prior to completion of the procedure and wound closure, the Exparel anesthetic mixture was injected at the level of the Genicular nerve and anterior decending nerves as a local peripheral nerve block by the surgeon to aid in post-op pain control. This was done beyond what is considered usual and customary in administring local anesthetic during total knee arthroplasty as a specific nerve block, therefore genicular nerve block was coded and billed as an independent part of the procedure, CPT 42689. DISPOSITION: The patient was extubated and transferred to PACU in stable condition and he tolerated the procedure well. He will remain as an inpatient for 1-2 days on the medical service of Dr. Alice Metcalf. Once he is cleared from a medical point of view, he can be discharged to home with services or an acute/subacute rehab/ TCU. Once he is discharged from the hospital, he must followup in my office within 2 weeks and we will ensure that he has proper postoperative followup. While he is an inpatient, we will monitor his progress and follow him. He is to be weightbearing as tolerated to the left lower extremity and will work with physical therapy focusing on regaining range of motion as much as possible, out of bed as much as possible and ambulation as well as strengthening, stretching. He will receive adequate pain control. He will be started on DVT prophylaxis in the form of 40 mg subcutaneous Lovenox injection starting postop of day #1 for a minimum of two weeks post-operative. Batsheva Magana MD [facility]
== END 2018-01-25 19:30 | DRG 470 ==
LOC: C.9S 06:10 → C.6T 13:21
PROVIDERS: ADMIT Internal Medicine Pulmonary Disease; ATTEND Internal Medicine Pulmonary Disease
PROC: 3E0T3BZ Introduction of Anesthetic Agent into Peripheral Nerves and Plexi, Percutaneous Approach (ICD-10-PCS; 2018-01-23)
PROC: 0SRD0J9 Replacement of Left Knee Joint with Synthetic Substitute, Cemented, Open Approach (ICD-10-PCS; principal; 2018-01-23 07:30)
DX: M17.12 Unilateral primary osteoarthritis, left knee (principal); M67.862 Other specified disorders of synovium, left knee; M21.162 Varus deformity, not elsewhere classified, left knee; E11.9 Type 2 diabetes mellitus without complications; E78.5 Hyperlipidemia, unspecified; I10 Essential (primary) hypertension; K21.9 Gastro-esophageal reflux disease without esophagitis; N40.0 Benign prostatic hyperplasia without lower urinary tract symptoms; Z87.891 Personal history of nicotine dependence; Z90.49 Acquired absence of other specified parts of digestive tract; Z79.4 Long term (current) use of insulin; M65.9 Synovitis and tenosynovitis, unspecified